=== PATIENT | female | born 1980 | race Caucasian/White ===

== ENCOUNTER 2017-02-08 10:18 | Emergency (ER) | payer OTHER ==
[~2017-02-08] VITALS: Ht 162.6 cm; Wt 62.0 kg
[~2017-02-08 10:18] MED LIST: DICY10CA13 PO; PERC5TAB12 PO; ZOFR4TAB3 SL; ZOVI400T15 PO
[2017-02-08 10:23] VITALS: BP 129/76; TEMP 98.1; O2SAT 98
[2017-02-08] MEDS ORDERED: SODIUM CHLOR 0.9% 1000 ML INJ 1,000 ML IV SCH (10:40)
[2017-02-08] MEDS ORDERED: SODIUM CHLORIDE 0.9% FLUSH 10 ML FLUSH IV FLUSH PRN (10:45)
[2017-02-08] MEDS ORDERED: ONDANSETRON HCL 4 MG/2 ML VIAL IVP ONE (10:45)
[2017-02-08] MEDS ORDERED: MORPHINE SULFATE 4 MG/ML INJ IV PUSH ONE ×2 (10:45→12:15)
--- NOTE | 2017-02-08 10:46 | PD ---
HPI Chief Complaint: Pain: Acute or Chronic Time Seen by Provider: 10:34 Travel History International Travel<30 days: No Contact w/Intl Traveler<30days: No Traveled to known affect area: No History of Present Illness HPI 36yo F with PMH of Crohn's disease presents to the ED with c/o epigastric abdominal pain. States it is sharp, intermittent and nonradiating. States it feels like her crohns exacerbation. Associated with NBNB vomiting and nausea. States had loose stool this morning that was nonbloody. Denies any fever, chest pain, sob, urinary complaints, vaginal bleeding or discharge. Pt was last seen here in [address] a/p that showed ileus. Pt states she used to follow up with Dr. Bourgeois but has not in a while. States she is on dicyclomine. 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) Shingles: Yes (REOCCURING SHINGLES) ?: Not Menopausal: No : 2 Para: 2 Past Surgical History Abdominal Surgery: Yes (2 C SECTIONS) Section: Yes (TWO) Social History Alcohol Use: Yes (3-4 TIMES PER MONTH) Tobacco Use: Yes (3/4 PPD) Substance Use: No Allergies-Medications (Allergen,Severity, Reaction): Coded Allergies: No Known Allergies (Verified , 02/08/17) Reported Meds & Prescriptions Reported Meds & Active Scripts Active Omeprazole 40 Mg Cap 40 Mg PO DAILY Reported Ativan (Lorazepam) 1 Mg Tab 1 Mg PO DAILY PRN Tramadol (Tramadol HCl) 50 Mg Tab 50 Mg PO BID PRN Dicyclomine (Dicyclomine HCl) 10 Mg Cap 10 Mg PO Q8HR PRN Review of Systems Except as stated in HPI: all other systems reviewed are Neg Physical Exam Narrative GENERAL: 36yo F in moderate distress. SKIN: Focused skin assessment warm/dry. HEAD: Atraumatic. Normocephalic. CARDIOVASCULAR: Regular rate and rhythm. No murmur appreciated. RESPIRATORY: No accessory muscle use. Clear to auscultation. Breath sounds equal bilaterally. GASTROINTESTINAL: Abdomen soft, +TTP epigastric region. No rebound tenderness or guarding. MUSCULOSKELETAL: No obvious deformities. No clubbing. No cyanosis. No edema. NEUROLOGICAL: Awake and alert. No obvious cranial nerve deficits. Motor grossly within normal limits. Normal speech. PSYCHIATRIC: Appropriate mood and affect; insight and judgment normal. Data Data Last Documented VS Vital Signs Date Time Temp Pulse Resp B/P Pulse Ox O2 Delivery O2 Flow Rate FiO2 02/08/17 12:35 78 18 116/73 99 Room Air 02/08/17 10:23 98.1 Orders Complete Blood Count With Diff (02/08/17 10:40) Comprehensive Metabolic Panel (02/08/17 10:40) Lipase (02/08/17 10:40) Prothrombin Time / Inr (Pt) (02/08/17 10:40) Act Partial Throm Time (Ptt) (02/08/17 10:40) Urinalysis - C+S If Indicated (02/08/17 10:40) Iv Access Insert/Monitor (02/08/17 10:40) Ecg Monitoring (02/08/17 10:40) Oximetry (02/08/17 10:40) Morphine Inj (Morphine Inj) (02/08/17 10:45) Ondansetron Inj (Zofran Inj) (02/08/17 10:45) Sodium Chlor 0.9% 1000 Ml Inj (Ns 1000 M (02/08/17 10:40) Sodium Chloride 0.9% Flush (Ns Flush) (02/08/17 10:45) Ed Urine Pregnancytest Poc (02/08/17 10:40) Ct Abd/Pel W Iv Contrast(Rout) (02/08/17 ) Iohexol 350 Inj (Omnipaque 350 Inj) (02/08/17 11:33) Pantoprazole Inj (Protonix Inj) (02/08/17 12:15) Morphine Inj (Morphine Inj) (02/08/17 12:15) Labs Laboratory Tests Test 02/08/17 02/08/17 11:00 11:10 Urine Collection Type VOIDED Urine Color STRAW Urine Turbidity CLEAR Urine pH 5.0 Urine Specific [place] 1.009 Urine Protein NEG mg/dL Urine Glucose (UA) NEG mg/dL Urine Ketones NEG mg/dL Urine Occult Blood NEG Urine Nitrite NEG Urine Bilirubin NEG Urine Leukocyte Esterase NEG Urine RBC /hpf Urine WBC 0-2 /hpf Urine Squamous Epithelial 0-5 /hpf Cells Microscopic Urinalysis Comment CULT NOT INDICATED White Blood Count 9.1 TH/MM3 Red Blood Count 4.91 MIL/MM3 Hemoglobin 15.4 GM/DL Hematocrit 46.2 % Mean Corpuscular Volume 94.0 FL Mean Corpuscular Hemoglobin 31.3 PG Mean Corpuscular Hemoglobin 33.3 % Concent Red Cell Distribution Width 12.7 % Platelet Count 299 TH/MM3 Mean Platelet Volume 8.6 FL Neutrophils (%) (Auto) 66.0 % Lymphocytes (%) (Auto) 25.0 % Monocytes (%) (Auto) 5.6 % Eosinophils (%) (Auto) 1.5 % Basophils (%) (Auto) 1.9 % Neutrophils # (Auto) 6.0 TH/MM3 Lymphocytes # (Auto) 2.3 TH/MM3 Monocytes # (Auto) 0.5 TH/MM3 Eosinophils # (Auto) 0.1 TH/MM3 Basophils # (Auto) 0.2 TH/MM3 CBC Comment DIFF FINAL Differential Comment Prothrombin Time 10.3 SEC Prothromb Time International 0.9 RATIO Ratio Activated Partial 25.4 SEC Thromboplast Time Sodium Level 141 MEQ/L Potassium Level 4.0 MEQ/L Chloride Level 110 MEQ/L Carbon Dioxide Level 23.8 MEQ/L Anion Gap 7 MEQ/L Blood Urea Nitrogen 8 MG/DL Creatinine 0.66 MG/DL Estimat Glomerular Filtration 101 ML/MIN Rate Random Glucose 82 MG/DL Calcium Level 8.9 MG/DL Total Bilirubin 0.4 MG/DL Aspartate Amino Transf 10 U/L (AST/SGOT) Alanine Aminotransferase 17 U/L (ALT/SGPT) Alkaline Phosphatase 56 U/L Total Protein 7.6 GM/DL Albumin 4.1 GM/DL Lipase 147 U/L [facility] Medical Decision Making Medical Screen Exam Complete: Yes Emergency Medical Condition: Yes Interpretation(s) Laboratory Tests Test 02/08/17 02/08/17 11:00 11:10 Urine Collection Type VOIDED Urine Color STRAW (YELLW/STRAW) Urine Turbidity CLEAR (CLEAR) Urine pH 5.0 (5.0-8.5) Urine Specific [place] 1.009 (1.002-1.035) Urine Protein NEG mg/dL (NEG-TRACE) Urine Glucose (UA) NEG mg/dL (NEG) Urine Ketones NEG mg/dL (NEG) Urine Occult Blood NEG (NEG) Urine Nitrite NEG (NEG) Urine Bilirubin NEG (NEG) Urine Leukocyte Esterase NEG (NEG) Urine RBC /hpf (0-3) Urine WBC 0-2 /hpf (0-5) Urine Squamous Epithelial 0-5 /hpf (0-5) Cells Microscopic Urinalysis Comment CULT NOT INDICATED White Blood Count 9.1 TH/MM3 (4.0-11.0) Red Blood Count 4.91 MIL/MM3 (4.00-5.30) Hemoglobin 15.4 GM/DL (11.6-15.3) Hematocrit 46.2 % (35.0-46.0) Mean Corpuscular Volume 94.0 FL (80.0-100.0) Mean Corpuscular Hemoglobin 31.3 PG (27.0-34.0) Mean Corpuscular Hemoglobin 33.3 % Concent (32.0-36.0) Red Cell Distribution Width 12.7 % (11.6-17.2) Platelet Count 299 TH/MM3 (150-450) Mean Platelet Volume 8.6 FL (7.0-11.0) Neutrophils (%) (Auto) 66.0 % (16.0-70.0) Lymphocytes (%) (Auto) 25.0 % (9.0-44.0) Monocytes (%) (Auto) 5.6 % (0.0-8.0) Eosinophils (%) (Auto) 1.5 % (0.0-4.0) Basophils (%) (Auto) 1.9 % (0.0-2.0) Neutrophils # (Auto) 6.0 TH/MM3 (1.8-7.7) Lymphocytes # (Auto) 2.3 TH/MM3 (1.0-4.8) Monocytes # (Auto) 0.5 TH/MM3 (0-0.9) Eosinophils # (Auto) 0.1 TH/MM3 (0-0.4) Basophils # (Auto) 0.2 TH/MM3 (0-0.2) CBC Comment DIFF FINAL Differential Comment Prothrombin Time 10.3 SEC (9.8-11.6) Prothromb Time International 0.9 RATIO Ratio Activated Partial 25.4 SEC Thromboplast Time (24.3-30.1) Sodium Level 141 MEQ/L (136-145) Potassium Level 4.0 MEQ/L (3.5-5.1) Chloride Level 110 MEQ/L (98-107) Carbon Dioxide Level 23.8 MEQ/L (21.0-32.0) Anion Gap 7 MEQ/L (5-15) Blood Urea Nitrogen 8 MG/DL (7-18) Creatinine 0.66 MG/DL (0.50-1.00) Estimat Glomerular Filtration 101 ML/MIN Rate (>89) Random Glucose 82 MG/DL (74-106) Calcium Level 8.9 MG/DL (8.5-10.1) Total Bilirubin 0.4 MG/DL (0.2-1.0) Aspartate Amino Transf 10 U/L (15-37) (AST/SGOT) Alanine Aminotransferase 17 U/L (10-53) (ALT/SGPT) Alkaline Phosphatase 56 U/L (45-117) Total Protein 7.6 GM/DL (6.4-8.2) Albumin 4.1 GM/DL (3.4-5.0) Lipase 147 U/L (73-393) Last Impressions Abdomen/Pelvis CT 02/08/17 0000 Signed Impressions: Service Date/Time: Wednesday, February 08, 2017 11:20 - CONCLUSION: 1. Unremarkable bowel gas pattern with no evidence of obstruction or transition zone. 2. Apparent partially decompressed cysts in the right ovary with small amount of fluid in the right side of the pelvis. Atilio Gill MD Differential Diagnosis Colitis vs. pancreatitis vs. gastritis vs. obstruction Narrative Course 36yo F with crohn's here with epigastric pain and vomiting. Labs reviewed, no leukocytosis. H/H elevated, likely dehydration. CMP unremarkable. Normal lipase. UA negative. CTa/p unremarkable. Partially decompressed cysts in right ovary. Urine negative. Pt given zofran and morphine but still with abdominal pain. Pt given another dose of morphine and protonix. Pt reevaluated at bedside and pain has resolved. Pt tolerating PO. Return precautions given. Diagnosis Primary Impression: Abdominal pain Qualified Code: R10.13 - Epigastric pain Patient Instructions: General Instructions Departure Forms: Tests/Procedures Additional Instructions: Please follow up with your GI physician as outpatient in 1-2 days. Return to the ED if symptoms worsen. Med/Other Pt SpecificInfo: Prescription(s) given Scripts Omeprazole 40 Mg Cap40 Mg PO DAILY #7 CAP Ref 0 Prov:CarrionSusy DO 02/08/17 Disposition: 01 DISCHARGE HOME Condition: Stable Susy Carrion DO Feb 08, 2017 10:46
[2017-02-08] MEDS ORDERED: DICY10CA12 PO (10:59)
[2017-02-08] MEDS ORDERED: LORA-474 PO (10:59)
[2017-02-08] MEDS ORDERED: TRAM50TA PO (10:59)
[2017-02-08 11:11] LABS: BLOOD, URINE NEG (NEG); GLUCOSE,URINE NEG (NEG); KETONE, URINE NEG (NEG); NITRITE,URINE NEG (NEG)
[2017-02-08 11:14] VITALS: O2SAT 99
[2017-02-08 11:30] LABS: BASOPHIL # 0.2 TH/MM3 (0-0.2); BASOPHIL % 1.9 % (0.0-2.0); EOSINOPHIL # 0.1 TH/MM3 (0-0.4); EOSINOPHIL % 1.5 % (0.0-4.0); HEMATOCRIT 46.2 % (35.0-46.0); HEMO FLAGS DIFF FINAL; LYMPHOCYTE # 2.3 TH/MM3 (1.0-4.8); MEAN CORPUSCULAR HEMOGLOBIN 31.3 PG (27.0-34.0); MEAN CORPUSCULAR HGB CONC 33.3 % (32.0-36.0); MONO % 5.6 % (0.0-8.0); PLATELET COUNT 299 TH/MM3 (150-450); RED BLOOD COUNT 4.91 MIL/MM3 (4.00-5.30); RED CELL DISTRIBUTION WIDTH 12.7 % (11.6-17.2); WHITE BLOOD COUNT 9.1 TH/MM3 (4.0-11.0)
[2017-02-08] MEDS ORDERED: IOHEXOL 350 MG/ML 10 ML VIAL (for RAD DIAG) IV ONE (11:33)
[2017-02-08 11:36] LABS: METHOD OF COLLECTION VOIDED; URINE COLOR STRAW (YELLW/STRAW)
[2017-02-08 11:37] LABS: WBC, URINE 0-2 /hpf (0-5)
[2017-02-08 11:38] LABS: COMMENT (UR) CULT NOT INDICATED; CULTURE IF INDICATED CULT NOT INDICATED; SQUAMOUS EPITHELIAL CELL URINE 0-5 /hpf (0-5)
[2017-02-08 11:40] LABS: APTT (PATIENT) 25.4 SEC (24.3-30.1); INTERNATIONAL NORMALIZED RATIO 0.9 RATIO; PROTHROMBIN TIME - PATIENT 10.3 SEC (9.8-11.6)
[2017-02-08 11:48] LABS: CHLORIDE 110 MEQ/L (98-107); SODIUM (NA) 141 MEQ/L (136-145)
--- NOTE | 2017-02-08 11:52 | RADHPO ---
EXAM DATE/TIME: 02/08/2017 11:20 [facility] COMPARISON: CT ABDOMEN & PELVIS W CONTRAST, January 21, 2015, 1:59. INDICATIONS : Intermittent epigastric pain. History of Crohn's disease. IV CONTRAST: 95 cc Omnipaque 350 (iohexol) IV ORAL CONTRAST: No oral contrast ingested. RADIATION DOSE: 6.41 CTDIvol (mGy) MEDICAL HISTORY : Crohn's disease. SURGICAL HISTORY : section. ENCOUNTER: Initial ACUITY: 1 day PAIN SCALE: 6/10 LOCATION: upper quadrant abdomen /pelvis TECHNIQUE: Volumetric scanning of the abdomen and pelvis was performed. Using automated exposure control and ad justment of the mA and/or kV according to patient size, radiation dose was kept as low as reasonably achievable to obtain optimal diagnostic quality images. FINDINGS: LOWER LUNGS: The visualized lower lungs are clear except for mild atelectasis. LIVER: Homogeneous density without lesion. There is mild steatosis. The gallbladder is unremarkable in appea prabhakar. There is no dilation of the biliary tree. No calcified gallstones. SPLEEN: Normal size without lesion. PANCREAS: Within normal limits. KIDNEYS: Normal in size and shape. There is no mass, stone or hydronephrosis. ADRENAL GLANDS: Within normal limits. VASCULAR: There is no aortic aneurysm. BOWEL/MESENTERY: The stomach, small bowel, and colon demonstrate no acute abnormality. There is no free intraperitone al air or fluid. ABDOMINAL WALL: Within normal limits. RETROPERITONEUM: There is no lymphadenopathy. BLADDER: No wall thickening or mass. REPRODUCTIVE: The uterus and left adnexa appear unremarkable. There are enhancing partially collapsed right ovarian cysts with small amount of fluid in the right side of the pelvis. INGUINAL: There is no lymphadenopathy or hernia. MUSCULOSKELETAL: Within normal limits for patient age. CONCLUSION: 1. Unremarkable bowel gas pattern with no evidence of obstruction or transition zone. 2. Apparent partially decompressed cysts in the right ovary with small amount of fluid in the right s tarik of the pelvis. Atilio Gill MD on February 08, 2017 at 11:43 Board Certified Radiologist. This report was verified electronically.
[2017-02-08 11:53] LABS: ANION GAP 7 MEQ/L (5-15); BICARBONATE 23.8 MEQ/L (21.0-32.0); BLOOD UREA NITROGEN 8 MG/DL (7-18)
[2017-02-08 11:56] LABS: ALT (GPT) 17 U/L (10-53); AST (GOT) 10 U/L (15-37); GLOMERULAR FILTRATION RATE 101 ML/MIN (>89)
[2017-02-08 11:57] LABS: TOTAL BILIRUBIN ADULT 0.4 MG/DL (0.2-1.0)
[2017-02-08 11:58] LABS: ALKALINE PHOSPHATASE 56 U/L (45-117)
[2017-02-08] MEDS ORDERED: PANTOPRAZOLE SODIUM 40 MG VIAL IV PUSH ONE (12:15)
[2017-02-08] MEDS ORDERED: OMEP40CA2 PO (12:19)
[2017-02-08 12:35] VITALS: BP 116/73; PULSE 78; RESP 18; O2SAT 99
== END 2017-02-08 13:13 | disposition home or self-care (01) ==
LOC: PHED 10:18
DX: R10.13 Epigastric pain (principal); R11.2 Nausea with vomiting, unspecified; K50.90 Crohn's disease, unspecified, without complications; F17.210 Nicotine dependence, cigarettes, uncomplicated
CPT/HCPCS: 74177; 80053; 81001; 83690; 84703; 85025; 85610; 85730; 96361; 96374; 96375; 96376; 99284; C9113; J2270; J2405; J7030; Q9967